=== PATIENT | male | born 1955 | race African-American/Black ===

== ENCOUNTER 2017-07-21 21:13 | Emergency (ER) | payer MEDICAID ==
[~2017-07-21] VITALS: Ht 172.7 cm; Wt 95.0 kg
[~2017-07-21 21:13] MED LIST: ASPI81 PO; GLUCTAB PO
[2017-07-21 21:17] VITALS: BP 197/112; PULSE 109; RESP 16; TEMP 100.3; O2SAT 99
[2017-07-22] MEDS ORDERED: MORPHINE SULFATE 4 MG/ML INJ IV PUSH ONE (00:30)
[2017-07-22] MEDS ORDERED: ONDANSETRON HCL 4 MG/2 ML VIAL IV PUSH ONE (00:30)
--- NOTE | 2017-07-22 00:46 | RADRPT ---
EXAM DATE/TIME: 07/22/2017 00:39 [facility] COMPARISON: No previous studies available for comparison. INDICATIONS : Cough, cold and flu symptoms. MEDICAL HISTORY : Diabetes mellitus type II. Hypertension A-fib. SURGICAL HISTORY : Pacemaker. ENCOUNTER: Initial ACUITY: 4 - 6 days PAIN SCORE: 6/10 LOCATION: Bilateral chest FINDINGS: A single view of the chest demonstrates the lungs to be symmetrically aerated without evidence of mas s, infiltrate or effusion. The cardiomediastinal contours are unremarkable. Osseous structures are intact. Cardiac pacer/defibrillator present. CONCLUSION: No evidence of acute cardiopulmonary disease. Cayden eVlasco MD on July 22, 2017 at 0:45 Board Certified Radiologist. This report was verified electronically.
--- NOTE | 2017-07-22 00:48 | PD ---
HPI Chief Complaint: Cold / Flu Symptoms Time Seen by Provider: 00:12 Travel History International Travel<30 days: No Contact w/Intl Traveler<30days: No Traveled to known affect area: No History of Present Illness HPI 61yo M with PMH of AICD, HTN, DM, afib on eliquis s/p what sounds like ablation 3 weeks ago here with c/o fever, nasal congestion, chills, cough, abdominal pain , vomiting and diarrhea for 2 days. Said there is no blood in vomit or diarrhea. Denies any chest pain, sob. Pt was recently discharge from [facility] 2 weeks ago for evaluation of left leg numbness. Psychiatric Cns is Dr. Holbrook. [facility] Past Medical History Anxiety: Yes Heart Rhythm Problems: Yes (UNSURE) Cardiovascular Problems: Yes Chest Pain: Yes Diabetes: Yes (DIET CONTROLLED) Patient Takes Glucophage: No Diminished Hearing: No Hypertension: Yes Immunizations Current: Yes Tetanus Vaccination: > 5 Years Influenza Vaccination: No Past Surgical History Abdominal Surgery: Yes (2 HERNIA REPAIRS) Pacemaker: Yes (defib) Other Surgery: Yes (RIGHT FOREARM SURGERY) Social History Alcohol Use: Yes (DAILY) Tobacco Use: No Substance Use: No Allergies-Medications (Allergen,Severity, Reaction): Coded Allergies: No Known Allergies (Verified Adverse Reaction, Unknown, 07/21/17) Reported Meds & Prescriptions Reported Meds & Active Scripts Active Reported Glucophage (Metformin HCl) 500 Mg Tab 500 Mg PO DAILY Aspirin 81 Mg Tab 81 Mg PO DAILY Review of Systems Except as stated in HPI: all other systems reviewed are Neg Physical Exam Narrative GENERAL: 61yo M in mild distress. SKIN: Focused skin assessment warm/dry. HEAD: Atraumatic. Normocephalic. EYES: Pupils equal and round. No scleral icterus. No injection or drainage. ENT: No nasal bleeding or discharge. Mucous membranes pink and moist. NECK: Trachea midline. No JVD. CARDIOVASCULAR: Regular rate and rhythm. No murmur appreciated. RESPIRATORY: No accessory muscle use. Clear to auscultation. Breath sounds equal bilaterally. GASTROINTESTINAL: Abdomen soft, +TTP RLQ. NO rebound tenderness or guarding. MUSCULOSKELETAL: No obvious deformities. No clubbing. No cyanosis. No edema. NEUROLOGICAL: Awake and alert. No obvious cranial nerve deficits. Motor grossly within normal limits. Normal speech. PSYCHIATRIC: Appropriate mood and affect; insight and judgment normal. Data Data Last Documented VS Vital Signs Date Time Temp Pulse Resp B/P (MAP) Pulse Ox O2 Delivery O2 Flow Rate FiO2 07/22/17 04:08 07/22/17 02:19 98.2 93 18 98 Room Air Orders Orders Complete Blood Count With Diff (07/22/17 00:27) Basic Metabolic Panel (Bmp) (07/22/17 00:27) Blood Culture (07/22/17 00:27) Lactic Acid Sepsis Protocol (07/22/17 00:27) Prothrombin Time / Inr (Pt) (07/22/17 00:27) Act Partial Throm Time (Ptt) (07/22/17 00:27) Chest, Single Ap (07/22/17 ) Ct Abd/Pel W Iv Contrast(Rout) (07/22/17 ) Morphine Inj (Morphine Inj) (07/22/17 00:30) Ondansetron Inj (Zofran Inj) (07/22/17 00:30) Electrocardiogram (07/22/17 ) Influenzae A/B Antigen (07/22/17 00:29) Urinalysis - C+S If Indicated (07/22/17 00:29) Acetaminophen (Tylenol) (07/22/17 01:00) Troponin I (07/22/17 01:48) Iohexol 350 Inj (Omnipaque 350 Inj) (07/22/17 03:24) Acetamin-Hydrocod 325-5 Mg ([place] 5-325 (07/22/17 04:00) Ed Discharge Order (07/22/17 03:56) Labs Laboratory Tests Test 07/22/17 01:48 White Blood Count 4.7 TH/MM3 Red Blood Count 4.81 MIL/MM3 Hemoglobin 14.0 GM/DL Hematocrit 41.4 % Mean Corpuscular Volume 86.1 FL Mean Corpuscular Hemoglobin 29.0 PG Mean Corpuscular Hemoglobin Concent 33.7 % Red Cell Distribution Width 14.2 % Platelet Count 173 TH/MM3 Mean Platelet Volume 7.9 FL Neutrophils (%) (Auto) 65.8 % Lymphocytes (%) (Auto) 23.5 % Monocytes (%) (Auto) 9.9 % Eosinophils (%) (Auto) 0.2 % Basophils (%) (Auto) 0.6 % Neutrophils # (Auto) 3.1 TH/MM3 Lymphocytes # (Auto) 1.1 TH/MM3 Monocytes # (Auto) 0.5 TH/MM3 Eosinophils # (Auto) 0.0 TH/MM3 Basophils # (Auto) 0.0 TH/MM3 CBC Comment DIFF FINAL Differential Comment Prothrombin Time 11.2 SEC Prothromb Time International Ratio 1.1 RATIO Activated Partial Thromboplast Time 27.7 SEC Urine Color LIGHT-YELLOW Urine Turbidity CLEAR Urine pH 5.5 Urine Specific [place] 1.006 Urine Protein NEG mg/dL Urine Glucose (UA) NEG mg/dL Urine Ketones NEG mg/dL Urine Occult Blood NEG Urine Nitrite NEG Urine Bilirubin NEG Urine Urobilinogen LESS THAN 2.0 MG/DL Urine Leukocyte Esterase NEG Urine RBC 1 /hpf Urine WBC 1 /hpf Urine Squamous Epithelial Cells <1 /hpf Urine Bacteria RARE /hpf Urine Mucus FEW /lpf Microscopic Urinalysis Comment CULT NOT INDICATED Blood Urea Nitrogen 10 MG/DL Creatinine 1.55 MG/DL Random Glucose 126 MG/DL Calcium Level 8.5 MG/DL Sodium Level 140 MEQ/L Potassium Level 4.1 MEQ/L Chloride Level 107 MEQ/L Carbon Dioxide Level 26.3 MEQ/L Anion Gap 7 MEQ/L Estimat Glomerular Filtration Rate 56 ML/MIN Lactic Acid Level 1.2 mmol/L Troponin I 0.03 NG/ML [facility] Medical Decision Making Medical Screen Exam Complete: Yes Emergency Medical Condition: Yes Differential Diagnosis Influenza vs. pneumonia vs. viral syndrome vs. colitis Narrative Course 61yo M with flu like symptoms for 2 days. Pt has temp of 100.3F and tachycardic at 109bpm in triage. BP was also very elevated and pt is on 3 different blood pressure medication and said he has been compliant. IV catheter placed and sepsis work up initiated. Blood culture, labs including lactic were drawn. EKG, CXR, CT a/p, influenza ordered. O2 sat 99% on RA and pt is speaking in complete sentences without chest pain or sob. Pt seen at end of my shift and sign out to my PA to follow up and discuss with night attending if needed. Morphine, zofran, and acetaminophen given. Will recheck BP once pain is improved. Diagnosis Primary Impression: Cough UnrulyShelbie DO Jul 22, 2017 00:48
[2017-07-22] MEDS ORDERED: ACETAMINOPHEN 325 MG TAB PO ONE (01:00)
[2017-07-22 02:11] LABS: AUTOMATED NEUTROPHIL # 3.1 TH/MM3 (1.8-7.7); BASOPHIL % 0.6 % (0.0-2.0); EOSINOPHIL % 0.2 % (0.0-4.0); HEMATOCRIT 41.4 % (39.0-51.0); LYMPH % 23.5 % (9.0-44.0); LYMPHOCYTE # 1.1 TH/MM3 (1.0-4.8); MEAN CELL VOLUME 86.1 FL (80.0-100.0); MEAN CORPUSCULAR HGB CONC 33.7 % (32.0-36.0); MEAN PLATELET VOLUME 7.9 FL (7.0-11.0); MONO % 9.9 % (0.0-8.0); MONOCYTE # 0.5 TH/MM3 (0-0.9); NEUT % 65.8 % (16.0-70.0); PLATELET COUNT 173 TH/MM3 (150-450); RED BLOOD COUNT 4.81 MIL/MM3 (4.50-5.90); RED CELL DISTRIBUTION WIDTH 14.2 % (11.6-17.2); WHITE BLOOD COUNT 4.7 TH/MM3 (4.0-11.0)
[2017-07-22 02:17] LABS: BACTERIA, URINE RARE /hpf; BILIRUBIN, URINE NEG (NEG); BLOOD, URINE NEG (NEG); GLUCOSE,URINE NEG (NEG); KETONE, URINE NEG (NEG); MUCUS URINE FEW /lpf (OCC); NITRITE,URINE NEG (NEG); PH, URINE 5.5 (5.0-8.5); SQUAMOUS EPITHELIAL CELL URINE <1 /hpf (0-5); URINE COLOR LIGHT-YELLOW (YELLW/STRAW); URINE LEUKOCYTE ESTERASE NEG (NEG)
[2017-07-22 02:19] VITALS: BP 137/62; PULSE 93; RESP 18; TEMP 98.2; O2SAT 98
[2017-07-22 02:19] LABS: INTERNATIONAL NORMALIZED RATIO 1.1 RATIO; PROTHROMBIN TIME - PATIENT 11.2 SEC (9.8-11.6)
[2017-07-22 02:37] LABS: BICARBONATE 26.3 MEQ/L (21.0-32.0); CALCIUM 8.5 MG/DL (8.5-10.1); CREATININE 1.55 MG/DL (0.60-1.30)
[2017-07-22 02:40] LABS: TROPONIN I 0.03 NG/ML (0.02-0.05)
[2017-07-22] MEDS ORDERED: IOHEXOL 350 MG/ML 10 ML VIAL (for RAD DIAG) IVCONTRAST ONE (03:24)
--- NOTE | 2017-07-22 03:32 | RADRPT ---
EXAM DATE/TIME: 07/22/2017 03:18 [facility] COMPARISON: No previous studies available for comparison. INDICATIONS : Right lower quadrant abdomen pain and vomiting. IV CONTRAST: 100 cc Omnipaque 350 (iohexol) IV ORAL CONTRAST: No oral contrast ingested. RADIATION DOSE: 13.17 CTDIvol (mGy) MEDICAL HISTORY : Cardiovascular disease. Hernia. Hypertension. SURGICAL HISTORY : Defibrillator. ENCOUNTER: Initial ACUITY: 1 day PAIN SCALE: 8/10 LOCATION: Bilateral abdomen TECHNIQUE: Volumetric scanning of the abdomen and pelvis was performed. Using automated exposure control and ad justment of the mA and/or kV according to patient size, radiation dose was kept as low as reasonably achievable to obtain optimal diagnostic quality images. DICOM format image data is available electro nically for review and comparison. FINDINGS: LOWER LUNGS: The visualized lower lungs are clear. LIVER: Homogeneous fat density without focal lesion. There is no dilation of the biliary tree. No calcifie d gallstones. SPLEEN: Normal size without lesion. PANCREAS: Within normal limits. KIDNEYS: Normal in size and shape. There is no mass, stone or hydronephrosis. ADRENAL GLANDS: Within normal limits. VASCULAR: Atherosclerotic abdominal aorta and iliac arteries. Right common iliac artery is mildly aneurysmal at approximately 2.3 cm. BOWEL/MESENTERY: The stomach, small bowel, and colon demonstrate no acute abnormality. There is no free intraperitone al air or fluid. Normal appendix. ABDOMINAL WALL: Within normal limits. RETROPERITONEUM: There is no lymphadenopathy. BLADDER: No wall thickening or mass. REPRODUCTIVE: Within normal limits. INGUINAL: Previous right inguinal hernia repair. No recurrent defect. MUSCULOSKELETAL: No acute bony abnormality demonstrated. There is a 12 mm intertrochanteric sclerotic focus of the lef t femur that is most likely a benign bone island. CONCLUSION: 1. No obstruction, inflammatory changes or other acute abnormality demonstrated. 2. Fatty liver. 3. Atherosclerotic abdominal aorta and iliac arteries. Mildly aneurysmal right common iliac artery. Cayden Velasco MD on July 22, 2017 at 3:28 Board Certified Radiologist. This report was verified electronically.
--- NOTE | 2017-07-22 03:59 | PD ---
Physical Exam Date Seen by Provider: Jul 22, 2017 Time Seen by Provider: 03:56 Narrative GENERAL: Well-developed, well-nourished in no acute distress. Nontoxic appearing. HEAD: Normocephalic, atraumatic. EYES: Pupils equal round and reactive. Extraocular motions intact. No scleral icterus. No injection or drainage. ENT: TMs clear without erythema. The external auditory canals clear. Nose: clear . Posterior pharynx is pink and moist. No tonsillar edema or exudate. Uvula midline. Airway patent. NECK: Trachea midline.Supple, nontender, moves head freely. No central bony tenderness or spasm. CARDIOVASCULAR: Regular rate and rhythm without murmurs, gallops, or rubs. RESPIRATORY: Clear to auscultation. Breath sounds equal bilaterally. No wheezes , rales, or rhonchi. GASTROINTESTINAL: Abdomen soft, non-tender, nondistended. No hepato-splenomegaly , or palpable masses. No guarding. EXTREMITIES: No clubbing, cyanosis, or edema. No joint tenderness, effusion, or edema noted. BACK: Nontender without deformity or crepitance. No flank tenderness. Data Data Last Documented VS Vital Signs Date Time Temp Pulse Resp B/P (MAP) Pulse Ox O2 Delivery O2 Flow Rate FiO2 07/22/17 02:19 98.2 93 18 137/62 (87) 98 Room Air Orders Orders Complete Blood Count With Diff (07/22/17 00:27) Basic Metabolic Panel (Bmp) (07/22/17 00:27) Blood Culture (07/22/17 00:27) Lactic Acid Sepsis Protocol (07/22/17 00:27) Prothrombin Time / Inr (Pt) (07/22/17 00:27) Act Partial Throm Time (Ptt) (07/22/17 00:27) Chest, Single Ap (07/22/17 ) Ct Abd/Pel W Iv Contrast(Rout) (07/22/17 ) Morphine Inj (Morphine Inj) (07/22/17 00:30) Ondansetron Inj (Zofran Inj) (07/22/17 00:30) Electrocardiogram (07/22/17 ) Influenzae A/B Antigen (07/22/17 00:29) Urinalysis - C+S If Indicated (07/22/17 00:29) Acetaminophen (Tylenol) (07/22/17 01:00) Troponin I (07/22/17 01:48) Iohexol 350 Inj (Omnipaque 350 Inj) (07/22/17 03:24) Acetamin-Hydrocod 325-5 Mg ([place] 5-325 (07/22/17 04:00) Ed Discharge Order (07/22/17 03:56) Labs Laboratory Tests Test 07/22/17 01:48 White Blood Count 4.7 TH/MM3 Red Blood Count 4.81 MIL/MM3 Hemoglobin 14.0 GM/DL Hematocrit 41.4 % Mean Corpuscular Volume 86.1 FL Mean Corpuscular Hemoglobin 29.0 PG Mean Corpuscular Hemoglobin Concent 33.7 % Red Cell Distribution Width 14.2 % Platelet Count 173 TH/MM3 Mean Platelet Volume 7.9 FL Neutrophils (%) (Auto) 65.8 % Lymphocytes (%) (Auto) 23.5 % Monocytes (%) (Auto) 9.9 % Eosinophils (%) (Auto) 0.2 % Basophils (%) (Auto) 0.6 % Neutrophils # (Auto) 3.1 TH/MM3 Lymphocytes # (Auto) 1.1 TH/MM3 Monocytes # (Auto) 0.5 TH/MM3 Eosinophils # (Auto) 0.0 TH/MM3 Basophils # (Auto) 0.0 TH/MM3 CBC Comment DIFF FINAL Differential Comment Prothrombin Time 11.2 SEC Prothromb Time International Ratio 1.1 RATIO Activated Partial Thromboplast Time 27.7 SEC Urine Color LIGHT-YELLOW Urine Turbidity CLEAR Urine pH 5.5 Urine Specific [place] 1.006 Urine Protein NEG mg/dL Urine Glucose (UA) NEG mg/dL Urine Ketones NEG mg/dL Urine Occult Blood NEG Urine Nitrite NEG Urine Bilirubin NEG Urine Urobilinogen LESS THAN 2.0 MG/DL Urine Leukocyte Esterase NEG Urine RBC 1 /hpf Urine WBC 1 /hpf Urine Squamous Epithelial Cells <1 /hpf Urine Bacteria RARE /hpf Urine Mucus FEW /lpf Microscopic Urinalysis Comment CULT NOT INDICATED Blood Urea Nitrogen 10 MG/DL Creatinine 1.55 MG/DL Random Glucose 126 MG/DL Calcium Level 8.5 MG/DL Sodium Level 140 MEQ/L Potassium Level 4.1 MEQ/L Chloride Level 107 MEQ/L Carbon Dioxide Level 26.3 MEQ/L Anion Gap 7 MEQ/L Estimat Glomerular Filtration Rate 56 ML/MIN Lactic Acid Level 1.2 mmol/L Troponin I 0.03 NG/ML [facility] Medical Record Reviewed: Yes Supervised Visit with REGINA: Yes Interpretation(s) CBC & BMP Diagram 07/22/17 01:48 Calcium Level 8.5 Influenza: Negative Laboratory Tests Test 07/22/17 01:48 White Blood Count 4.7 TH/MM3 Red Blood Count 4.81 MIL/MM3 Hemoglobin 14.0 GM/DL Hematocrit 41.4 % Mean Corpuscular Volume 86.1 FL Mean Corpuscular Hemoglobin 29.0 PG Mean Corpuscular Hemoglobin Concent 33.7 % Red Cell Distribution Width 14.2 % Platelet Count 173 TH/MM3 Mean Platelet Volume 7.9 FL Neutrophils (%) (Auto) 65.8 % Lymphocytes (%) (Auto) 23.5 % Monocytes (%) (Auto) 9.9 % Eosinophils (%) (Auto) 0.2 % Basophils (%) (Auto) 0.6 % Neutrophils # (Auto) 3.1 TH/MM3 Lymphocytes # (Auto) 1.1 TH/MM3 Monocytes # (Auto) 0.5 TH/MM3 Eosinophils # (Auto) 0.0 TH/MM3 Basophils # (Auto) 0.0 TH/MM3 CBC Comment DIFF FINAL Differential Comment Prothrombin Time 11.2 SEC Prothromb Time International Ratio 1.1 RATIO Activated Partial Thromboplast Time 27.7 SEC Urine Color LIGHT-YELLOW Urine Turbidity CLEAR Urine pH 5.5 Urine Specific [place] 1.006 Urine Protein NEG mg/dL Urine Glucose (UA) NEG mg/dL Urine Ketones NEG mg/dL Urine Occult Blood NEG Urine Nitrite NEG Urine Bilirubin NEG Urine Urobilinogen LESS THAN 2.0 MG/DL Urine Leukocyte Esterase NEG Urine RBC 1 /hpf Urine WBC 1 /hpf Urine Squamous Epithelial Cells <1 /hpf Urine Bacteria RARE /hpf Urine Mucus FEW /lpf Microscopic Urinalysis Comment CULT NOT INDICATED Blood Urea Nitrogen 10 MG/DL Creatinine 1.55 MG/DL Random Glucose 126 MG/DL Calcium Level 8.5 MG/DL Sodium Level 140 MEQ/L Potassium Level 4.1 MEQ/L Chloride Level 107 MEQ/L Carbon Dioxide Level 26.3 MEQ/L Anion Gap 7 MEQ/L Estimat Glomerular Filtration Rate 56 ML/MIN Lactic Acid Level 1.2 mmol/L Troponin I 0.03 NG/ML Last 24 hours Impressions Chest X-Ray 07/22/17 0000 Signed Impressions: Service Date/Time: Saturday, July 22, 2017 00:39 - CONCLUSION: No evidence of acute cardiopulmonary disease. Cayden Velasco MD Abdomen/Pelvis CT 07/22/17 0000 Signed Impressions: Service Date/Time: Saturday, July 22, 2017 03:18 - CONCLUSION: 1. No obstruction, inflammatory changes or other acute abnormality demonstrated. 2. Fatty liver. 3. Atherosclerotic abdominal aorta and iliac arteries. Mildly aneurysmal right common iliac artery. Cayden Velasco MD Differential Diagnosis . Narrative Course I was asked to review the patient laboratory tests as well as his x-ray and CAT scan. Laboratory tests are unremarkable for any acute inflammatory infectious process. Patient is more concerned regarding treatment of his back pain at this time. Patient is given 1 [place] 5 mg p.o. here. I reviewed the patient's laboratory tests with him patient agrees with treatment plan and follow-up. He agrees to follow-up with his primary care doctor in the next 1-2 days. This is influenza-like illness, back pain Diagnosis Primary Impression: Influenza-like illness Additional Impression: Back pain Patient Instructions: Narcotic given in the ED, General Instructions Additional Instruction: Rest. Increase fluids. Tylenol and Advil. Robitussin-DM. Followup with your Dr. in 1-2 days. Return to the ER for any problems. Med/Other Pt SpecificInfo: No Meds Exist/No RX given Disposition: 01 DISCHARGE HOME Condition: Stable Walker Flroes Jul 22, 2017 03:59
[2017-07-22] MEDS ORDERED: ACETAMINOPHEN/HYDROcodone 325 MG/5 MG TAB PO ONE (04:00)
--- NOTE | 2017-07-22 14:23 | EKG ---
Date Performed: 07/22/2017 Time Performed: 02:13:14 PTAGE: 61 years EKG: ELECTRONIC VENTRICULAR PACEMAKER ABNORMAL RHYTHM ECG PREVIOUS TRACING : 12/20/2009 09.41 Since the prior tracing, the patient is now ventricularly p aced with atrial tracking. DOCTOR: Ifrah Reed Interpretating Date/Time 07/22/2017 14:22:23
== END 2017-07-22 04:28 | disposition home or self-care (01) ==
LOC: NEPD 21:13
DX: J11.1 Influenza due to unidentified influenza virus with other respiratory manifestations (principal); M54.9 Dorsalgia, unspecified; I48.91 Unspecified atrial fibrillation; E11.9 Type 2 diabetes mellitus without complications; I10 Essential (primary) hypertension; Z79.84 Long term (current) use of oral hypoglycemic drugs
CPT/HCPCS: 71045; 74177; 80048; 81001; 83605; 84484; 85025; 85610; 85730; 87040; 87804; 93005; 96374; 96375; 99285; J2270; J2405; Q9967